=== PATIENT | female | born 1950 | race Caucasian/White ===

== ENCOUNTER 2021-02-03 20:44 | Emergency (ER) | payer MEDICARE, SELFPAY ==
[2021-02-03 21:13] VITALS: BP 171/108; PULSE 112; RESP 16; TEMP 36.5; O2SAT 96; BMI 33.6
--- NOTE | 2021-02-03 23:13 | MHC.MBSS ---
PT STATES SHE USED TO TAKE VALIUM 20MG AT NIGHT AND IS IN BETWEEN DOCTORS.
[2021-02-04 00:34] LABS: Glucose Urine UA NEG (NEG); Leukocyte Esterase Urine NEG (NEG); Nitrite Urine NEG (NEG); PH 7.5 (5.0-8.0); Urine Blood NEG (NEG); Urine Ketones NEG (NEG); Urine Protein NEG (NEG-TRACE)
[2021-02-04 00:36] LABS: Appearance Urine CLEAR; Color Urine YELLOW
--- NOTE | 2021-02-04 00:44 | ED_ITS ---
HPI - General Adult General Chief complaint: General Medical Stated complaint: insomnia Time Seen by Provider: 02/03/21 23:36 Source: patient Mode of arrival: ambulatory History of Present Illness HPI narrative: 70-year-old female with history of restless leg syndrome and complaining of insomnia for a couple of days now. She states that she has suffered from uncontrolled leg an are movement which was previously being treated by medications, but patient does not currently have any medications. Related Data Previous Rx's Medication Instructions Recorded hydroxyzine HCl 25 mg PO QID PRN #10 tab 02/04/21 Allergies Allergy/AdvReac Type Severity Reaction Status Date / Time codeine [Codeine] Allergy Mild UNKNOWN Unverified 06/04/20 15:20 Iodinated Contrast Media AdvReac Mild CELLULITIS Unverified 06/04/20 15:20 [IV Dye, Iodine Containing] AT INJECTION SITE Review of Systems Review of Systems: Pertinent positives and negatives as stated in HPI 10 point review of systems is otherwise negative. PMFSH Past Medical History Source: nursing notes reviewed Social History Social History Alcohol intake: never Smoking Status: Current every day smoker Use of substances other than those prescribed or required for medical reasons: No Any prior treatment program specific to substance use: No Advance Directives: No Advance Directives Information Provided: No Physical Exam Vital Signs: Vital Signs: Last Vital Signs Temp 97.7 F 02/03/21 21:13 Pulse 112 H 02/03/21 21:13 Resp 16 02/03/21 21:13 BP 171/108 H 02/03/21 21:13 Pulse Ox 96 02/03/21 21:13 Body Mass Index 33.6 VITAL SIGNS: Reviewed. GENERAL: Well developed, well nourished, in no acute distress. HEAD: Normocephalic/atraumatic EYES: PERRLA, EOMI NOSE: Nares patent bilateral OROPHARYNX: no oral lesions noted, posterior pharynx clear NECK: Supple, no adenopathy LUNGS: Normal breath sounds. No adventitious sounds or accessory muscle use. SpO2<96> CARDIOVASCULAR: Regular rate and rhythm without noted murmurs ABDOMEN: Soft, non-tender, non-distended with bowel sounds. NEUROLOGIC: Alert and oriented x 4. Course Course Course Narrative: 70-year-old female with history of restless leg syndrome but endorses that she has not been to see her primary care provider since August and otherwise denies any constitutional symptoms. In addition, patient endorse that she has been taking Valium from her friends for her symptoms. I informed the patient that I would be unable to provide her with a prescription for Valium but did offer a dose of hydroxyzine as well as a prescription and instructed her to follow up with her primary care provider for further management of her condition. She is otherwise stable for discharge to home. Medical Decision Making Lab Data Labs: Lab Results 02/04/21 02/04/21 Range/Units 00:25 00:25 Urine Color YELLOW Urine Appearance CLEAR Urine pH 7.5 (5.0-8.0) Ur Specific Aristes 1.020 (1.005-1.025) Urine Protein NEG (NEG-TRACE) MG/DL Urine Glucose (UA) NEG (NEG) MG/DL Urine Ketones NEG (NEG) MG/DL Urine Blood NEG (NEG) Urine Nitrite NEG (NEG) Ur Leukocyte Esterase NEG (NEG) Urine Opiates Screen Not Detected (Not Detect) Ur Barbiturates Screen POSITIVE H (Not Detect) Ur Phencyclidine Scrn Not Detected (Not Detect) Ur Amphetamines Screen Not Detected (Not Detect) U Benzodiazepines Scrn Not Detected (Not Detect) Urine Cocaine Screen Not Detected (Not Detect) U Marijuana (THC) Screen Not Detected (Not Detect) Discharge Plan Discharge Clinical Impression: Restless leg syndrome Patient Disposition: Home, Self-Care Instructions: Restless Legs Syndrome (ED) Additional Instructions: Please follow-up with your primary care provider in the next 2-3 days for re- evaluation. Return to the emergency room for any acute worsening of your symptoms. Prescriptions: New hydroxyzine HCl 25 mg tablet 25 mg PO QID PRN (Reason: anxiety) Qty: 10 RF: 0 Referrals: Physician,Unknown [Primary Care Provider] - 2 days Interventions: ED Discharge Assessment Last Done: 02/04/21 01:44 Discharge Date/Time: 02/04/21 01:34
[2021-02-04 01:01] LABS: Amphetamine Screen Urine Not Detected (Not Detect); Barbiturates, Urine POSITIVE (Not Detect); Benzodiazepines Screen Urine Not Detected (Not Detect); Cannabinoid Screen Urine Not Detected (Not Detect); Cocaine Screen Urine Not Detected (Not Detect); Opiate Screen Urine Not Detected (Not Detect); Phencyclidine Screen Urine Not Detected (Not Detect)
[2021-02-04] MEDS: hydrOXYzine HCL 25 MG TABLET PO (01:05)
--- NOTE | 2021-02-04 01:29 | PC.NURSE ---
PER DR. PORTILLO NO LABS NEEDED OR EKG AT THIS TIME PT WILL GO HOME AFTER URINE RESULTS COME BACK.
== END 2021-02-04 01:34 | disposition home or self-care (01) ==
PROVIDERS: Emergency Provider Student in an Organized Health Care Education/Training Program
DX: G25.81 Restless legs syndrome (principal); G47.00 Insomnia, unspecified; F17.200 Nicotine dependence, unspecified, uncomplicated; Z71.6 Tobacco abuse counseling; Z79.899 Other long term (current) drug therapy
CPT/HCPCS: 80307; 81003; 99284